=== PATIENT | male | born 1990 | race Caucasian/White ===

== ENCOUNTER 2018-09-08 18:38 | Emergency (ER) | payer BC ==
--- NOTE | 2018-09-08 18:51 | ER Report ---
History and Physical Time Seen By MD: 18:51 Hx. of Stated Complaint: laceration HPI/ROS CHIEF COMPLAINT: Laceration HISTORY OF PRESENT ILLNESS: 28-year-old male patient presents to the emergency room with complaint of laceration to the left palmar aspect of the thumb. Patient states that he was helping a friend deondre rojas and he states that the friend missed. Patient states that the pain is significant with any type of movement. He states there is no difficulty moving the thumb. Patient has not taken any medication for this. He did apply some pressure to the wound. Patient states that his last tetanus shot was in 2013. Patient states he does have a soft tissue lesion to the right anterior thigh. He states that he's had it for years. He states it is gotten bigger recently. States it is not tender. He has never taken any medicine for this. He is not been evaluated previously for this. Allergies: Coded Allergies: No Known Allergies (Verified Allergy, Unknown, 09/08/18) Home Meds Active Scripts Hydrocodone Bit/Acetaminophen (HYDROCODON-ACETAMINOPHEN 5-325) 1 Each Tablet, 1 EACH PO Q4-6H PRN for PAIN, #6 TAB Prov:NORMA GAMINO [facility] 09/08/18 Cephalexin 500 Mg Tab (KEFLEX 500 MG TAB) 500 Mg Tablet, 500 MG PO Q6H, #20 TAB Prov:NORMA GAMINO [facility] 09/08/18 Past Medical/Surgical History Patient denies any pertinent medical or surgical history. Reviewed Nurses Notes: Yes Constitutional Vital Sign - Last 24 Hours 09/08/18 09/08/18 18:43 19:50 Temp 97.7 Pulse 133 93 Resp 12 B/P (MAP) 140/105 124/88 (100) Pulse Ox 97 96 O2 Delivery Room Air Physical Exam General appearance: Alert no distress. Respiratory: Chest is non tender, lungs are clear to auscultation. Cardiac: Regular rate and rhythm. Skin: Patient has a laceration to the left thumb which does go into the subcutaneous tissue. Patient has good movement and that does not appear to be any ligamentous injury. Right anterior thigh there is a soft tissue lesion, non- tender, non-fixed. DIFFERENTIAL DIAGNOSIS: After history and physical exam differential diagnosis was considered for laceration, lipoma, abscess. Medical Decision Making ED Course/Re-evaluation ED Course Patient was admitted to an exam room, history and physical were obtained. Differential diagnoses were considered. On examination lungs are clear, heart is regular. Patient does have a laceration to the left lung. Is a U-shaped laceration with a flap. It measured 7 cm from into and. The area was anesthetized, cleaned and repaired as described below. The lesion on the lower right thigh is nontender, non-fixed. I believe that is likely a lipoma. An ultrasound was ordered for the lesion. Patient after getting his wound repaired became very and seen did not want to wait for the ultrasound to be done. Patient be discharged at this time. He was given an order for the ultrasound to be done as an outpatient. I informed him that I will call with the results of the ultrasound. Patient was requesting something for pain first thumb. We will go ahead and give him a limited supply of pain medication, #6 tabs. He is to return to the emergency room with any signs of infection. He is to follow-up with primary care provider in 7-10 days could sutures removed. Patient verbalized understanding and agreement with plan. Procedure: Laceration repair. Verbal consent was obtained from the patient. The 7 cm laceration on the palmar aspect of the left thumb was anesthetized in the usual fashion. The wound was scrubbed, draped and explored to its base with a gloved finger. There were no deep structures involved. No tendon injury was identified. The wound was repaired with 14 simple interrupted sutures using 5-0 Prolene material. The wound repair was simple. The procedure was performed by myself. Decision to Disposition Date: Sep 08, 2018 Decision to Disposition Time: 20:22 Depart Departure Latest Vital Signs Vital Signs Date Time Temp Pulse Resp B/P (MAP) Pulse Ox O2 Delivery O2 Flow Rate FiO2 09/08/18 19:50 93 124/88 (100) 96 09/08/18 18:43 97.7 12 Room Air Impression: Primary Impression: Thumb laceration Additional Impression: Soft tissue lesion Condition: Improved Disposition: HOME OR SELF-CARE New Scripts Hydrocodone Bit/Acetaminophen (HYDROCODON-ACETAMINOPHEN 5-325) 1 Each Tablet 1 EACH PO Q4-6H PRN for PAIN, #6 TAB Prov: NORMA GAMINO 09/08/18 Cephalexin 500 Mg Tab (KEFLEX 500 MG TAB) 500 Mg Tablet 500 MG PO Q6H, #20 TAB Prov: NORMA GAMINO 09/08/18 Patient Instructions: Finger Laceration (ED) Additional Instructions: Keep wound dry for 48 hours. Follow up with your primary care provider in the next 7-10 days to have sutures removed. Monitor for signs of infection; redness, swelling, heat, discharge, increasing pain or red streaking. Take Tylenol or Ibuprofen as needed for pain. Return to the ER with any concerns. You may change dressing as needed. You can schedule an outpatient ultrasound of the bump on your right thigh, call to make an appointment. The number to radiology is [phone] Problem Qualifiers Primary Impression: Thumb laceration Encounter type: initial encounter Damage to nail status: without damage Foreign body presence: without foreign body Laterality: left Qualified Codes: S61.012A - Laceration without foreign body of left thumb without damage to nail, initial encounter NORMA GAMINO Sep 08, 2018 18:50
[2018-09-08 19:50] VITALS: BP 124/88
[2018-09-08] MEDS ORDERED: CEPH500T7 PO (20:19)
[2018-09-08] MEDS ORDERED: HYDR-385 PO (20:19)
== END 2018-09-08 20:23 | disposition home or self-care (01) ==
LOC: ER 18:55
DX: S61.012A Laceration without foreign body of left thumb without damage to nail, initial encounter (principal); W45.8XXA Other foreign body or object entering through skin, initial encounter
CPT/HCPCS: 99283